=== PATIENT | male | born 2000 | race Hispanic/Latino ===

== ENCOUNTER 2020-10-11 05:29 | Emergency (ER) | payer OTHER ==
[~2020-10-11] VITALS: Ht 165.1 cm; Wt 61.8 kg
[2020-10-11 05:40] VITALS: BP 132/74
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
== END 2020-10-11 06:59 | disposition home or self-care (01) ==
LOC: M ED 05:29
DX: S13.4XXA Sprain of ligaments of cervical spine, initial encounter (principal); V48.5XXA Car driver injured in noncollision transport accident in traffic accident, initial encounter